=== PATIENT | male | born 1985 | race Two or more races ===

== ENCOUNTER 2017-02-19 05:20 | Emergency (ER) | payer MEDICAID, OTHER ==
[~2017-02-19] VITALS: Ht 180.3 cm; Wt 99.8 kg
[2017-02-19 05:26] VITALS: BP 122/76
== END 2017-02-19 07:15 | disposition home or self-care (01) ==
LOC: ER 05:20
DX: J01.90 Acute sinusitis, unspecified (principal); H10.9 Unspecified conjunctivitis